=== PATIENT | male | born 1955 | race Caucasian/White ===

== ENCOUNTER 2018-02-20 08:02 | Day surgery (SDC) | payer BC, OTHER ==
[~2018-02-20 08:02] MED LIST: Lactated Ringers 1,000 ML IV SCH; Sodium Chloride 0.9% 10 ML Syringe FLUSH PRN
[2018-02-20] MEDS ORDERED: Propofol 200 MG/20 ML SDV IV ONE (10:35)
[2018-02-20] MEDS ORDERED: Midazolam 1 MG/ML 2 ML SDV IV ONE (10:35)
--- NOTE | 2018-02-20 11:02 | PCM.OPNOTE ---
- General Post-Op/Procedure Note Date of Surgery/Procedure: 02/20/18 Operative Procedure(s): c scope Findings: normal colon Pre Op Diagnosis: hx of colon polyps Post-Op Diagnosis: normal scope Anesthesia Technique: MAC Primary Surgeon: Garth Lima Anesthesia Provider: Tamra Olmos Pathology: none Complications: None Condition: Good Free Text/Narrative:: see dictation #[id number]
--- NOTE | 2018-02-20 12:39 | OR ---
DATE OF OPERATION: 02/20/2018 SURGEON: Garth Lima MD PROCEDURE PERFORMED: Colonoscopy. PREOPERATIVE DIAGNOSIS: Personal history of colon polyps. POSTOPERATIVE DIAGNOSIS: Normal exam. INDICATIONS FOR PROCEDURE: This is a 62-year-old white male who has a personal history of colon polyps. He was offered and accepted same. DESCRIPTION OF OPERATION: After an excellent IV sedation was administered, digital rectal exam was performed. No marked abnormality was noted. Flexible colonoscope was inserted and advanced to the cecum without difficulty. The prep was excellent. The following findings were noted. Ascending colon, unremarkable. Transverse colon, unremarkable. Descending colon, unremarkable. Sigmoid and rectum, unremarkable. Colon was deflated as the scope was removed. The patient tolerated the procedure well and was taken to recovery room in a good condition. Repeat colonoscopy in 10 years. /[id number] /MODL
== END 2018-02-20 11:50 | disposition home or self-care (01) ==
LOC: FB.SDS 08:02
PROVIDERS: ATTEND Surgery
DX: Z12.11 Encounter for screening for malignant neoplasm of colon (principal); I10 Essential (primary) hypertension; F17.210 Nicotine dependence, cigarettes, uncomplicated; G47.33 Obstructive sleep apnea (adult) (pediatric); F41.1 Generalized anxiety disorder; Z86.010 Personal history of colon polyps; Z79.82 Long term (current) use of aspirin; Z79.899 Other long term (current) drug therapy
CPT/HCPCS: 45378; J7120; J2250; J2704

== ENCOUNTER 2018-12-14 19:42 | Emergency (ER) | payer OTHER ==
[2018-12-14] MEDS ORDERED: Acetaminophen/oxyCODONE 325-5 MG Tab PO ONE (19:43)
--- NOTE | 2018-12-14 20:31 | EDM.PDOC ---
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 Yesterday morning 9:30 fell off the letter onto his left shoulder. He has chronic left shoulder rotator cuff pain which he feels needs to be evaluated but it is not the reason why he here today. He had onset hematuria by 30 this morning with subsequent dysuria. He also passed a clot. On 12/12/18 he had onset of a debilitating 10/10 occipital headache without associated symptoms. No triggering events. He denies trauma, scintillating scotoma, fortification spectra, paresis, weakness, gait changes muscle strength changes. History of hypertension, myocardial infarction, stroke,. He's had a had a Pinedo screening test performed of his carotids before which were negative. His been taking Losartan for hypertension. He has glaucoma as and is taking medicine Latonoprost for glaucoma. He also has he's had a new medicine started Eylea. back Pain Score (Numeric/FACES): 6 - Related Data Allergies Allergy/AdvReac Type Severity Reaction Status Date / Time No Known Allergies Allergy Verified 12/14/18 20:03 Home Meds: Home Meds ALPRAZolam [Alprazolam] 1 mg PO QID PRN 02/19/18 [History] Aspirin [Patience Chewable Aspirin] 81 mg PO DAILY 02/19/18 [History] Dronabinol 1 cap PO BIDAC 02/19/18 [History] Latanoprost [Xalatan 0.005% Ophth Soln] 1 drop OP BEDTIME 02/19/18 [History] Losartan/Hydrochlorothiazide [Losartan-HCTZ 100-25 MG] 1 each PO DAILY 02/19/18 [History] Past Medical History HEENT History: Reports: Cataract, Impaired Vision, Other (See Below) Other HEENT History: RETINAL VEIN OCCLUSION-LEFT Cardiovascular History: Reports: Hypertension Respiratory History: Reports: Sleep Apnea Gastrointestinal History: Reports: Colon Polyp Genitourinary History: Reports: None [employer] History: Reports: None Musculoskeletal History: Reports: Back Pain, Chronic Neurological History: Reports: None Psychiatric History: Reports: Anxiety Endocrine/Metabolic History: Reports: None Hematologic History: Reports: None Oncologic (Cancer) History: Reports: Basal Cell Carcinoma Dermatologic History: Reports: None - Infectious Disease History Infectious Disease History: Reports: Chicken Pox, Measles - Past Surgical History Head Surgeries/Procedures: Reports: None HEENT Surgical History: Reports: Eye Surgery, Naso-Sinus Surgery, Other (See Below) Other HEENT Surgeries/Procedures: GLOSSECTOMY Respiratory Surgical History: Reports: Other (See Below) Other Respiratory Surgeries/Procedures: PT HAD SINUS SURGERY IN PAST\THROAT GI Surgical History: Reports: Colonoscopy Social & Family History - Family History Family Medical History: Noncontributory - Tobacco Use Smoking Status *Q: Current Every Day Smoker Years of Tobacco use: 40 Packs/Tins Daily: 1 - Caffeine Use Caffeine Use: Reports: Coffee - Recreational Drug Use Recreational Drug Use: No ED ROS GENERAL - Review of Systems Review Of Systems: ROS reveals no pertinent complaints other than HPI. ED EXAM, RENAL/ - Physical Exam Exam: See Below Text/Narrative:: Well-nourished well muscled man with no scleral icterus attended by his , he is mildly overweight pleasant interactive. Exam Limited By: No Limitations General Appearance: Alert, WD/WN, Moderate Distress, Other (Patient complains that he has a 10/10 discomfort in his leg.) Eye Exam: Bilateral Eye: Normal Inspection Ears: Normal External Exam, Normal Canal, Normal TMs Nose: Normal Inspection Throat/Mouth: Normal Inspection, Normal Lips, Normal Teeth, Normal Gums, Normal Oropharynx, Normal Voice, No Airway Compromise Head: Atraumatic, Normocephalic Neck: Normal Inspection, Other Respiratory/Chest: No Respiratory Distress, Lungs Clear, Normal Breath Sounds, No Accessory Muscle Use, Chest Non-Tender Cardiovascular: Normal Peripheral Pulses, Regular Rate, Rhythm, No Edema, No Gallop, No JVD, No Murmur, Gallop/S3 GI/Abdominal: Normal Bowel Sounds, Soft, Non-Tender, No Organomegaly (Male) Exam: No Hernia, Other (Prostate is flattened indurated without nodules enlarged 2+ to 3+ out of 5+, loss of the prostatic or pubic angle it's ( more acute)) Rectal (Males) Exam: Normal Rectal Tone Back Exam: Normal Inspection, Full Range of Motion, CVA Tenderness (R) Extremities: Normal Inspection, Normal Range of Motion, Non-Tender, No Pedal Edema, Normal Capillary Refill Neurological: Alert, Oriented, CN II-XII Intact, Normal Cognition, Normal Gait, Normal Reflexes, No Motor/Sensory Deficits Psychiatric: Normal Affect Skin Exam: Warm, Dry, Intact, Normal Color Course - Vital Signs Last Recorded V/S: Last Vital Signs Temp 36.2 C 12/14/18 19:42 Pulse 110 H 12/14/18 19:42 Resp 18 12/14/18 19:42 BP 175/101 H 12/14/18 19:42 Pulse Ox 99 12/14/18 19:42 - Orders/Labs/Meds Orders: Active Orders 24 hr Category Date Time Status Saini Catheter Insertion [Insert Urinary Catheter] [OM. Care 12/14/18 22:00 Ordered PC] Q24H Urinary Catheter Assessment [RC] QSHIFT Care 12/14/18 22:00 Active Abdomen Pelvis w wo Cont [CT] Stat Exams 12/14/18 20:23 Taken Labs: Laboratory Tests 12/14/18 12/14/18 12/14/18 Range/Units 19:52 20:50 20:50 WBC 8.8 (4.5-12.0) X10-3/uL RBC 4.66 (4.30-5.75) x10(6)uL Hgb 14.7 (13.5-17.8) g/dL Hct 42.7 (30.0-51.3) % MCV 91.6 (80-96) fL MCH 31.4 (27.7-33.6) pg MCHC 34.3 (32.2-35.4) g/dL RDW 12.2 (11.5-15.5) % Plt Count 246 (125-369) X10(3)uL MPV 8.2 (7.4-10.4) fL Neut % (Auto) 70.6 (46-82) % Lymph % (Auto) 18.4 (13-37) % [place] % (Auto) 9.5 (4-12) % Eos % (Auto) 1 (1.0-5.0) % Baso % (Auto) 0 (0-2) % Neut # (Auto) 6.2 (1.6-8.3) # Lymph # (Auto) 1.6 (0.6-5.0) # [place] # (Auto) 0.8 (0.0-1.3) # Eos # (Auto) 0.1 (0.0-0.8) # Baso # (Auto) 0.0 (0.0-0.2) # Sodium 138 (135-145) mmol/L Potassium 2.9 L (3.5-5.3) mmol/L Chloride 99 L (100-110) mmol/L Carbon Dioxide 28 (21-32) mmol/L BUN 13 (7-18) mg/dL Creatinine 1.4 H (0.70-1.30) mg/dL Est Cr Clr Drug Dosing 59.01 mL/min Estimated GFR (MDRD) 52 L (>60) BUN/Creatinine Ratio 9.3 (9-20) Glucose 91 (80-116) mg/dL Calcium 8.7 (8.6-10.2) mg/dL Total Bilirubin 0.4 (0.1-1.3) mg/dL AST 21 (5-25) IU/L ALT 33 (12-36) U/L Alkaline Phosphatase 66 (56-112) IU/L Total Protein 7.4 (6.0-8.0) g/dL Albumin 4.1 (3.2-4.6) g/dL Globulin 3.3 g/dL Albumin/Globulin Ratio 1.2 Urine Color Red (YELLOW) Urine Appearance Slightly cloudy (CLEAR) Urine pH 7.0 H (5.0-6.5) Ur Specific [place] 1.005 L (1.010-1.025) Urine Protein 500 H (NEGATIVE) mg/dL Urine Glucose (UA) Normal (NORMAL) mg/dL Urine Ketones Negative (NEGATIVE) mg/dL Urine Occult Blood Large H (NEGATIVE) Urine Nitrite Negative (NEGATIVE) Urine Bilirubin Negative (NEGATIVE) Urine Urobilinogen Normal (NEGATIVE) mg/dL Ur Leukocyte Esterase Moderate H (NEGATIVE) Urine RBC Packed H (0-5) Urine WBC 5-10 H (0-5) Ur Squamous Epith Cells Rare (NS,R,O) Urine Bacteria Few H (NS) Meds: Medications Discontinued Medications Generic Name Dose Route Start Last Admin Trade Name Freq PRN Reason Stop Dose Admin Iopamidol 150 ml 12/14/18 20:51 12/14/18 21:14 Isovue-370 (76%) IV 12/14/18 20:52 110 ml ONETIME ONE Administration Oxycodone/Acetaminophen 1 tab 12/14/18 20:45 Percocet 325-5 Mg PO 12/14/18 20:46 ONETIME FRANCIE Oxycodone/Acetaminophen 1 tab 12/14/18 20:46 12/14/18 20:49 Percocet 325-5 Mg PO 12/14/18 20:47 1 tab ONETIME ONE Administration - Re-Assessments/Exams Free Text/Narrative Re-Assessment/Exam: 12/14/18 20:42 Code CAT scan reveals mass left kidney. No stones noted. Patient will follow through with intravenous contrast to evaluate this mass. Departure - Departure Time of Disposition: 20:40 (Left renal mass. His etiology appears hematuria. When he further nephrology/urology evaluation. I've spoken to Dr. Erickson urologist and he is tocalll clinic to get appt in AM) Disposition: Home, Self-Care 01 Condition: Fair Clinical Impression: Renal mass, left - Discharge Information *PRESCRIPTION DRUG MONITORING PROGRAM REVIEWED*: Not Applicable *COPY OF PRESCRIPTION DRUG MONITORING REPORT IN PATIENT MARIZOL: Not Applicable Referrals: Lauri Pablo MD [Primary Care Provider] - Forms: ED Department Discharge Additional Instructions: I have spoken to Dr. Kenny Pinedo urology and he suggests - My Orders Last 24 Hours: My Active Orders 12/14/18 20:23 Abdomen Pelvis w wo Cont [CT] Stat 12/14/18 22:00 Saini Catheter Insertion [Insert Urinary Catheter] [OM.PC] Q24H Urinary Catheter Assessment [RC] QSHIFT - Assessment/Plan Last 24 Hours: My Active Orders 12/14/18 20:23 Abdomen Pelvis w wo Cont [CT] Stat 12/14/18 22:00 Saini Catheter Insertion [Insert Urinary Catheter] [OM.PC] Q24H Urinary Catheter Assessment [RC] QSHIFT
[2018-12-14] MEDS ORDERED: Acetaminophen/oxyCODONE 325-5 MG Tab PO SCH (20:45)
[2018-12-14] MEDS: Acetaminophen/oxyCODONE 325-5 MG Tab PO ONE (20:49)
[2018-12-14] MEDS: Iopamidol 755 MG/ML 150 ML Bottle IV ONE (21:14)
== END 2018-12-15 | disposition home or self-care (01) ==
LOC: FB.ED 19:42
DX: N28.89 Other specified disorders of kidney and ureter (principal); I10 Essential (primary) hypertension; I25.2 Old myocardial infarction; F17.210 Nicotine dependence, cigarettes, uncomplicated; Z79.82 Long term (current) use of aspirin
CPT/HCPCS: 36415; 51700; 51702; 74178; 80053; 81001; 85025; 99284-25; A9270-GY; Q9967